=== PATIENT | male | born 1970 | race Caucasian/White ===

== ENCOUNTER 2024-11-27 22:00 | Inpatient (IN) | payer MEDICAID ==
[~2024-11-27] VITALS: Ht 185.4 cm; Wt 64.0 kg
[2024-11-27] MEDS: FUROSEMIDE 40 MG/4 ML VIAL IV ONE (22:15)
[2024-11-27] MEDS: NITROGLYCERIN OINT 1 GM PACKET TP ONE (22:15)
[2024-11-27] MEDS: ASPIRIN 81 MG TAB.CHEW PO ONE (22:15)
[2024-11-27] MEDS ORDERED: APIX5TAB PO (22:27)
[2024-11-27] MEDS ORDERED: SACU1TAB7 PO (22:27)
[2024-11-27] MEDS ORDERED: PANT40TA49 PO (22:27)
[2024-11-27] MEDS ORDERED: QUET25TA PO (22:27)
[2024-11-27] MEDS ORDERED: TAMS-3 PO (22:27)
[2024-11-27] MEDS ORDERED: MIDO10TA PO (22:27)
[2024-11-27] MEDS ORDERED: AMIO200T5 PO (22:27)
[2024-11-27] MEDS ORDERED: BUME1TAB8 PO (22:27)
[2024-11-27] MEDS ORDERED: MIRT-73 PO (22:27)
[2024-11-27 22:37] LABS: BASOPHILS # (AUTO) 0.1 K/UL (0.0-0.2); BASOPHILS % (AUTO) 0.5 % (0.0-2.0); EOSINOPHILS % (AUTO) 0.2 % (0.0-7.0); HEMATOCRIT 35.9 % (36.7-47.1); HEMOGLOBIN 11.3 g/dL (12.5-16.3); LYMPHOCYTES # (AUTO) 2.9 K/uL (0.8-4.8); LYMPHOCYTES % (AUTO) 22.3 % (20.5-51.5); MEAN CORPUSCULAR HEMOGLOBIN 24.1 uug (23.8-33.4); MEAN CORPUSCULAR HGB CONC 32 g/dL (32.5-36.3); MEAN CORPUSCULAR VOLUME 76.4 fL (73.0-96.2); MONOCYTES # (AUTO) 0.7 K/uL (0.1-1.30); MONOCYTES % (AUTO) 5.7 % (0.0-11.0); NEUTROPHILS # (AUTO) 9.3 K/uL (1.8-8.9); NEUTROPHILS % (AUTO) 71.3 % (38.5-71.5); PLATELET COUNT (AUTO) 229 K/uL (152-348); RED CELL DISTRIBUTION WIDTH 30.9 % (12.1-16.2)
[2024-11-27] MEDS: levoFLOXacin 750 MG/D5W 150 ML PIGGYBACK IV ONE (22:45)
[2024-11-27] MEDS ORDERED: LABETALOL HCL 100 MG/20 ML VIAL ONE (22:48)
[2024-11-27 22:56] LABS: DIFFERENTIAL COMMENT 1
[2024-11-27 23:01] LABS: CALCIUM 8.2 mg/dL (8.5-10.1); CARBON DIOXIDE 18 mmol/L (21-32); CHLORIDE 110 mmol/L (98-107); CREATININE 1.1 mg/dL (0.6-1.3); GLUCOSE 144 mg/dL (74-106); POTASSIUM 4.1 mmol/L (3.5-5.1); SODIUM SERUM 139 mmol/L (136-145); UREA NITROGEN, BLOOD 25 mg/dL (7-18)
[2024-11-27 23:10] LABS: ABG BASE EXCESS -7.2 mmol/L (-2.0-3.0); ABG HCO3 16.9 mmol/L (21.0-28.0); ABG PCO2 30.1 mmHg (35.0-48.0); ABG PH 7.368 (7.350-7.450); ABG PO2 95.6 mmHg (83.0-108.0); ABG SITE LEFT RADIAL; ABG TOTAL HEMOGLOBIN 11.9 G/dL (13.5-17.5); AaDO2 97.2 mmHg; COHb 0.7 % (0.5-1.5); MetHb 0.3 % (0.0-1.5); O2Hb 94.9 % (94.0-98.0)
[2024-11-27 23:17] LABS: ALANINE AMINOTRANSFERASE 12 U/L (16-63); ALBUMIN 2.5 g/dL (3.4-5.0); ALKALINE PHOSPHATASE 89 U/L (50-136); ASPARTATE AMINOTRANSFERASE 17 U/L (15-37); BILIRUBIN,DIRECT 0.3 mg/dL (0.0-0.2); BILIRUBIN,TOTAL 0.6 mg/dL (0.2-1.0); TOTAL PROTEIN, SERUM 6.1 g/dL (6.4-8.2)
[2024-11-27] MEDS ORDERED: IV NORMAL SALINE 250 ML IV ONE (23:28)
[2024-11-27] MEDS ORDERED: IOHEXOL 350 100 ML INFUS..BTL ONE (23:28)
[2024-11-27] MEDS ORDERED: SWABABLE VALVE TRANSFER SET EA MC ONE (23:28)
[2024-11-27 23:37] LABS: NT-PRO BNP 37984 pg/mL (0-125)
[2024-11-27] MEDS ORDERED: levoFLOXacin 750MG/D5W 150 ML IV ONE (23:54)
[2024-11-27] MEDS ORDERED: BUMETANIDE 1 MG/4 ML VIAL ONE (23:54)
[2024-11-27] MEDS ORDERED: ASPIRIN 81 MG TAB.CHEW ONE (23:54)
[2024-11-27] MEDS ORDERED: FUROSEMIDE 40 MG/4 ML VIAL ONE (23:54)
[2024-11-27] MEDS ORDERED: NITROGLYCERIN OINT 1 GM PACKET TP ONE (23:54)
[2024-11-27] MEDS ORDERED: POTASSIUM CHLORIDE 20 MEQ TAB.PRT.SR ONE (23:55)
[2024-11-28] VITALS (57 sets, daily range): BP systolic 82–111; BP diastolic 66–86; TEMP 97.2–97.7; O2SAT 98–100
[2024-11-28] MEDS: POTASSIUM CHLORIDE 20 MEQ TAB.PRT.SR PO ONE (00:35)
[2024-11-28] MEDS: BUMETANIDE 1 MG/4 ML VIAL IV ONE (00:35)
[2024-11-28] MEDS: ETOMIDATE 20 MG/10 ML VIAL IV ONE (00:36)
[2024-11-28] MEDS: SUCCINYLCHOLINE CHLORIDE 200 MG/10 ML VIAL IV ONE (00:36)
[2024-11-28] MEDS ORDERED: PROPOFOL 100 ML ONE ×2 (00:40→06:29)
[2024-11-28] MEDS ORDERED: NOREPINEPHRINE 8MG/NS 250ML 250 ML IV PRN (00:45)
[2024-11-28] MEDS ORDERED: REMEDY ESSENTIAL ZINC PASTE 113 GM TP PRN (00:45)
[2024-11-28] MEDS ORDERED: ONDANSETRON 4 MG/2 ML VIAL IV PRN (00:45)
[2024-11-28] MEDS ORDERED: ACETAMINOPHEN 650 MG SUPP.RECT RC PRN (00:45)
[2024-11-28 01:07] LABS: ABG BASE EXCESS -11.5 mmol/L (-2.0-3.0); ABG HCO3 14.7 mmol/L (21.0-28.0); ABG PCO2 34.6 mmHg (35.0-48.0); ABG PH 7.247 (7.350-7.450); ABG PO2 208.8 mmHg (83.0-108.0); ABG SITE LEFT RADIAL; AaDO2 99.3 mmHg; COHb 0.3 % (0.5-1.5); MetHb 0.3 % (0.0-1.5); O2Hb 97.6 % (94.0-98.0); VT, ABG 500 mL
[2024-11-28] MEDS: PROPOFOL 100 ML IV ONE (01:12)
[2024-11-28 01:14] LABS: LACTIC ACID 3.2 mmol/L (0.4-2.0)
[2024-11-28] MEDS: IV NORMAL SALINE 500 ML BAG IV ONE (01:36)
[2024-11-28] MEDS ORDERED: ENOXAPARIN SODIUM 60 MG/0.6 ML DISP.SYRIN SQ ONE ×2 (02:19→14:00)
[2024-11-28] MEDS: ENOXAPARIN SODIUM 60 MG/0.6 ML DISP.SYRIN SQ ONE (02:20)
[2024-11-28 02:50] LABS: *CLARITY,URINE SLIGHTLY HAZY (CLEAR); *COLOR,URINE YELLOW (YELLOW)
[2024-11-28 02:51] LABS: *BILIRUBIN,URIN 1+ (NEGATIVE); *BLOOD, URINE 1+ (NEGATIVE); *PROTEIN,URINE 1+ (NEGATIVE); UGLUCOSE NEGATIVE (NEGATIVE)
[2024-11-28 02:52] LABS: *KETONES,URINE TRACE (NEGATIVE); *UROBILINOGEN,URINE 0.2 E.U./dl (NORMAL); LEUKOCYTE ESTERASE ,URINE NEGATIVE (NEGATIVE); NITRITE, URINE NEGATIVE (NEGATIVE)
[2024-11-28 02:59] LABS: WBC,URINE 0-3 /HPF (0-3)
[2024-11-28 03:06] LABS: BACTERIA,URINE FEW /HPF (NONE SEEN); SQUAMOUS EPITHELIAL CELL,UR MODERATE /HPF (NONE SEEN)
[2024-11-28 06:25] LABS: BASOPHILS % (AUTO) 0.2 % (0.0-2.0); EOSINOPHILS % (AUTO) 0.1 % (0.0-7.0); HEMATOCRIT 33.6 % (36.7-47.1); HEMOGLOBIN 10.8 g/dL (12.5-16.3); LYMPHOCYTES % (AUTO) 6.5 % (20.5-51.5); MEAN CORPUSCULAR HEMOGLOBIN 24.4 uug (23.8-33.4); MEAN CORPUSCULAR HGB CONC 32 g/dL (32.5-36.3); MEAN CORPUSCULAR VOLUME 76.2 fL (73.0-96.2); MONOCYTES # (AUTO) 0.8 K/uL (0.1-1.30); MONOCYTES % (AUTO) 5.7 % (0.0-11.0); NEUTROPHILS # (AUTO) 12.9 K/uL (1.8-8.9); NEUTROPHILS % (AUTO) 87.5 % (38.5-71.5); PLATELET COUNT (AUTO) 213 K/uL (152-348); RED BLOOD CELL COUNT(AUTO) 4.41 MIL/uL (4.06-5.63); RED CELL DISTRIBUTION WIDTH 30.5 % (12.1-16.2); WHITE BLOOD COUNT (AUTO) 14.8 K/uL (3.6-10.2)
[2024-11-28 06:28] LABS: DIFFERENTIAL COMMENT 1
[2024-11-28 06:44] LABS: CALCIUM 7.9 mg/dL (8.5-10.1); CREATININE 1.1 mg/dL (0.6-1.3); MAGNESIUM 1.8 mg/dL (1.8-2.4); PHOSPHOROUS 4.6 mg/dL (2.5-4.9); POTASSIUM 4.5 mmol/L (3.5-5.1)
[2024-11-28] MEDS ORDERED: PANTOPRAZOLE SODIUM 40 MG VIAL ONE (09:07)
[2024-11-28] MEDS ORDERED: FUROSEMIDE 20 MG/2 ML VIAL ONE (09:07)
[2024-11-28] MEDS: PANTOPRAZOLE SODIUM 40 MG VIAL IV SCH (09:11)
[2024-11-28] MEDS: FUROSEMIDE 20 MG/2 ML VIAL IV SCH (09:11)
[2024-11-28] MEDS: NOREPINEPHRINE BITARTRATE 32 MG in IV NORMAL SALINE 218 ML IV PRN (11:18)
[2024-11-28] MEDS: PROPOFOL 100 ML IV PRN (11:55)
[2024-11-28] MEDS: ENOXAPARIN SODIUM 60 MG/0.6 ML DISP.SYRIN SQ SCH (14:06)
[2024-11-28] MEDS ORDERED: NALO4SPR (14:17)
[2024-11-28] MEDS ORDERED: MULT-594 PO (14:20)
[2024-11-28] MEDS ORDERED: ZINC220T3 PO (14:20)
[2024-11-28] MEDS ORDERED: ACET-73 PO (14:21)
[2024-11-28] MEDS ORDERED: CHOL2000 PO (14:22)
[2024-11-28] MEDS ORDERED: ASCO-375 PO (14:22)
[2024-11-28] MEDS ORDERED: GUAI100S69 PO (14:23)
[2024-11-28] MEDS ORDERED: MELA5TAB PO (14:24)
[2024-11-28 17:03] LABS: ABG BASE EXCESS -2.1 mmol/L (-2.0-3.0); ABG HCO3 21.9 mmol/L (21.0-28.0); ABG PCO2 34.6 mmHg (35.0-48.0); ABG PH 7.419 (7.350-7.450); ABG SITE LEFT RADIAL; ABG TOTAL HEMOGLOBIN 10.7 G/dL (13.5-17.5); AaDO2 97.1 mmHg; COHb 0.5 % (0.5-1.5); MetHb 0.3 % (0.0-1.5); O2Hb 95.1 % (94.0-98.0); VT, ABG 500 mL
[2024-11-28] MEDS: MEROPENEM 1 G in IV NORMAL SALINE 100 ML IV SCH (21:56)
[2024-11-28] MEDS ORDERED: levoFLOXacin 750MG/D5W 750 MG in PREMIXED 1 EACH IV SCH (23:00)
[2024-11-29] VITALS (96 sets, daily range): BP systolic 85–138; BP diastolic 50–97; TEMP 97.8–98.1; O2SAT 99–100
[2024-11-29 05:32] LABS: BASOPHILS # (AUTO) 0.1 K/UL (0.0-0.2); BASOPHILS % (AUTO) 1.7 % (0.0-2.0); EOSINOPHILS % (AUTO) 0.3 % (0.0-7.0); HEMATOCRIT 31.5 % (36.7-47.1); HEMOGLOBIN 10.4 g/dL (12.5-16.3); LYMPHOCYTES # (AUTO) 1.8 K/uL (0.8-4.8); MEAN CORPUSCULAR HGB CONC 33 g/dL (32.5-36.3); MEAN CORPUSCULAR VOLUME 75.7 fL (73.0-96.2); MONOCYTES # (AUTO) 0.7 K/uL (0.1-1.30); MONOCYTES % (AUTO) 8.5 % (0.0-11.0); NEUTROPHILS # (AUTO) 5.9 K/uL (1.8-8.9); NEUTROPHILS % (AUTO) 68.5 % (38.5-71.5); PLATELET COUNT (AUTO) 198 K/uL (152-348); RED BLOOD CELL COUNT(AUTO) 4.16 MIL/uL (4.06-5.63); RED CELL DISTRIBUTION WIDTH 30.7 % (12.1-16.2); WHITE BLOOD COUNT (AUTO) 8.7 K/uL (3.6-10.2)
[2024-11-29 05:35] LABS: DIFFERENTIAL COMMENT 1
[2024-11-29 05:59] LABS: THYROID STIMULATING HORMONE 4.06 mIU/mL (0.358-3.740)
[2024-11-29 06:02] LABS: ABG BASE EXCESS -0.1 mmol/L (-2.0-3.0); ABG HCO3 22.7 mmol/L (21.0-28.0); ABG PCO2 30.7 mmHg (35.0-48.0); ABG PH 7.487 (7.350-7.450); ABG PO2 167.2 mmHg (83.0-108.0); ABG SITE RIGHT RADIAL; ABG TOTAL HEMOGLOBIN 10.5 G/dL (13.5-17.5); AaDO2 99.3 mmHg; COHb 0.4 % (0.5-1.5); MetHb 0.3 % (0.0-1.5); O2Hb 97.6 % (94.0-98.0); VT, ABG 500 mL
[2024-11-29 06:32] LABS: ALBUMIN 2.1 g/dL (3.4-5.0); BILIRUBIN,TOTAL 0.6 mg/dL (0.2-1.0); CALCIUM 7.9 mg/dL (8.5-10.1); CREATININE 1.2 mg/dL (0.6-1.3); MAGNESIUM 1.8 mg/dL (1.8-2.4); PHOSPHOROUS 3.7 mg/dL (2.5-4.9); TOTAL PROTEIN, SERUM 5.1 g/dL (6.4-8.2)
[2024-11-29] MEDS ORDERED: FUROSEMIDE 20 MG/2 ML VIAL IV SCH (09:00)
[2024-11-29] MEDS: FUROSEMIDE 20 MG/2 ML VIAL IVP ONE (09:00)
[2024-11-29] MEDS: AMIODARONE HCL 200 MG TABLET PO SCH (09:01)
[2024-11-29] MEDS: FENTANYL CITRATE/PF 1,000 MCG in IV NORMAL SALINE 80 ML IV PRN (15:27)
[2024-11-29] MEDS: MAGNESIUM SULFATE/D5W 100 ML IV SCH (19:28)
[2024-11-29 19:38] LABS: CREATININE 1.2 mg/dL (0.6-1.3); POTASSIUM 3.5 mmol/L (3.5-5.1)
[2024-11-29] MEDS: FUROSEMIDE 40 MG/4 ML VIAL IVP SCH (20:22)
[2024-11-30] VITALS (98 sets, daily range): BP systolic 13–122; BP diastolic 48–87; TEMP 97.4–99; O2SAT 97–100
[2024-11-30 05:53] LABS: ABG BASE EXCESS 0.1 mmol/L (-2.0-3.0); ABG HCO3 21.8 mmol/L (21.0-28.0); ABG PCO2 26.7 mmHg (35.0-48.0); ABG PH 7.529 (7.350-7.450); ABG PO2 132.1 mmHg (83.0-108.0); ABG SITE RIGHT RADIAL; COHb 0.5 % (0.5-1.5); MetHb 0.3 % (0.0-1.5); O2Hb 96.8 % (94.0-98.0); VT, ABG 500 mL
[2024-11-30] MEDS: FUROSEMIDE 20 MG/2 ML VIAL IVP SCH (08:07)
[2024-11-30 08:10] LABS: BASOPHILS # (AUTO) 0.2 K/UL (0.0-0.2); BASOPHILS % (AUTO) 1.9 % (0.0-2.0); EOSINOPHILS # (AUTO) 0.1 K/uL (0.0-0.7); EOSINOPHILS % (AUTO) 0.7 % (0.0-7.0); HEMATOCRIT 37.6 % (36.7-47.1); HEMOGLOBIN 12.3 g/dL (12.5-16.3); LYMPHOCYTES # (AUTO) 2.3 K/uL (0.8-4.8); LYMPHOCYTES % (AUTO) 26.3 % (20.5-51.5); MEAN CORPUSCULAR HEMOGLOBIN 24.6 uug (23.8-33.4); MEAN CORPUSCULAR HGB CONC 33 g/dL (32.5-36.3); MONOCYTES # (AUTO) 0.8 K/uL (0.1-1.30); MONOCYTES % (AUTO) 9.2 % (0.0-11.0); NEUTROPHILS # (AUTO) 5.3 K/uL (1.8-8.9); NEUTROPHILS % (AUTO) 61.9 % (38.5-71.5); PLATELET COUNT (AUTO) 216 K/uL (152-348); RED BLOOD CELL COUNT(AUTO) 5.01 MIL/uL (4.06-5.63); RED CELL DISTRIBUTION WIDTH 30.9 % (12.1-16.2); WHITE BLOOD COUNT (AUTO) 8.6 K/uL (3.6-10.2)
[2024-11-30 08:19] LABS: DIFFERENTIAL COMMENT 1
[2024-11-30 08:34] LABS: ALBUMIN 2.2 g/dL (3.4-5.0); BILIRUBIN,TOTAL 0.6 mg/dL (0.2-1.0); CALCIUM 8.1 mg/dL (8.5-10.1); CREATININE 1.1 mg/dL (0.6-1.3); POTASSIUM 3.4 mmol/L (3.5-5.1); TOTAL PROTEIN, SERUM 5.9 g/dL (6.4-8.2)
[2024-11-30] MEDS: PROPOFOL 100 ML IV PRN (08:46)
[2024-11-30] MEDS ORDERED: FUROSEMIDE 40 MG/4 ML VIAL IVP SCH (09:00)
[2024-11-30] MEDS: NOREPINEPHRINE 8MG/NS 250ML 250 ML IV PRN (19:00)
[2024-11-30] MEDS: POTASSIUM CHLORIDE 50 ML IV ONE (20:10)
[2024-12-01] VITALS (89 sets, daily range): BP systolic 87–125; BP diastolic 65–97; TEMP 97.8–98.8; O2SAT 97–100
[2024-12-01 05:29] LABS: BASOPHILS # (AUTO) 0.1 K/UL (0.0-0.2); BASOPHILS % (AUTO) 1.8 % (0.0-2.0); EOSINOPHILS # (AUTO) 0.1 K/uL (0.0-0.7); EOSINOPHILS % (AUTO) 1.5 % (0.0-7.0); HEMATOCRIT 41.2 % (36.7-47.1); HEMOGLOBIN 13.6 g/dL (12.5-16.3); LYMPHOCYTES # (AUTO) 2.4 K/uL (0.8-4.8); LYMPHOCYTES % (AUTO) 30.1 % (20.5-51.5); MEAN CORPUSCULAR HEMOGLOBIN 24.9 uug (23.8-33.4); MEAN CORPUSCULAR HGB CONC 33 g/dL (32.5-36.3); MEAN CORPUSCULAR VOLUME 75.6 fL (73.0-96.2); MONOCYTES # (AUTO) 0.7 K/uL (0.1-1.30); MONOCYTES % (AUTO) 9.1 % (0.0-11.0); NEUTROPHILS # (AUTO) 4.5 K/uL (1.8-8.9); NEUTROPHILS % (AUTO) 57.5 % (38.5-71.5); PLATELET COUNT (AUTO) 244 K/uL (152-348); RED BLOOD CELL COUNT(AUTO) 5.45 MIL/uL (4.06-5.63); RED CELL DISTRIBUTION WIDTH 30.8 % (12.1-16.2); WHITE BLOOD COUNT (AUTO) 7.9 K/uL (3.6-10.2)
[2024-12-01 05:32] LABS: DIFFERENTIAL COMMENT 1
[2024-12-01 05:43] LABS: CALCIUM 8.2 mg/dL (8.5-10.1); MAGNESIUM 2.2 mg/dL (1.8-2.4); PHOSPHOROUS 4.3 mg/dL (2.5-4.9); POTASSIUM 4.1 mmol/L (3.5-5.1)
[2024-12-01 06:10] LABS: ABG BASE EXCESS -0.7 mmol/L (-2.0-3.0); ABG HCO3 23.1 mmol/L (21.0-28.0); ABG PCO2 35.6 mmHg (35.0-48.0); ABG PO2 98.2 mmHg (83.0-108.0); ABG SITE RIGHT RADIAL; AaDO2 97.7 mmHg; MetHb 0.3 % (0.0-1.5); O2Hb 95.3 % (94.0-98.0)
[2024-12-01] MEDS: BUMETANIDE 1 MG TABLET PO SCH (08:53)
[2024-12-01] MEDS: APIXABAN 5 MG TABLET PO SCH (08:53)
[2024-12-01] MEDS ORDERED: BISACODYL 10 MG SUPP.RECT RC PRN (20:30)
[2024-12-01] MEDS: LACTULOSE 20 G/30 ML LIQUID UDC GT PRN (20:54)
[2024-12-02] VITALS (65 sets, daily range): BP systolic 85–138; BP diastolic 44–99; TEMP 97.9–99; O2SAT 96–100
[2024-12-02 04:39] LABS: BASOPHILS # (AUTO) 0.1 K/UL (0.0-0.2); BASOPHILS % (AUTO) 1.7 % (0.0-2.0); EOSINOPHILS # (AUTO) 0.3 K/uL (0.0-0.7); EOSINOPHILS % (AUTO) 3.9 % (0.0-7.0); HEMATOCRIT 40.8 % (36.7-47.1); HEMOGLOBIN 13.4 g/dL (12.5-16.3); LYMPHOCYTES # (AUTO) 2.9 K/uL (0.8-4.8); LYMPHOCYTES % (AUTO) 34.6 % (20.5-51.5); MEAN CORPUSCULAR HGB CONC 33 g/dL (32.5-36.3); MONOCYTES # (AUTO) 0.9 K/uL (0.1-1.30); MONOCYTES % (AUTO) 10.4 % (0.0-11.0); NEUTROPHILS # (AUTO) 4.2 K/uL (1.8-8.9); NEUTROPHILS % (AUTO) 49.4 % (38.5-71.5); PLATELET COUNT (AUTO) 258 K/uL (152-348); RED BLOOD CELL COUNT(AUTO) 5.37 MIL/uL (4.06-5.63); RED CELL DISTRIBUTION WIDTH 29.9 % (12.1-16.2); WHITE BLOOD COUNT (AUTO) 8.4 K/uL (3.6-10.2)
[2024-12-02 04:40] LABS: DIFFERENTIAL COMMENT 1
[2024-12-02 04:53] LABS: CALCIUM 8.2 mg/dL (8.5-10.1); CREATININE 0.9 mg/dL (0.6-1.3); MAGNESIUM 2.1 mg/dL (1.8-2.4); PHOSPHOROUS 3.7 mg/dL (2.5-4.9); POTASSIUM 3.8 mmol/L (3.5-5.1)
[2024-12-02 06:44] LABS: ABG BASE EXCESS -0.1 mmol/L (-2.0-3.0); ABG HCO3 23.7 mmol/L (21.0-28.0); ABG PCO2 36.2 mmHg (35.0-48.0); ABG PH 7.434 (7.350-7.450); ABG PO2 89.7 mmHg (83.0-108.0); ABG SITE RIGHT BRACHIAL; ABG TOTAL HEMOGLOBIN 13.8 G/dL (13.5-17.5); AaDO2 97.1 mmHg; COHb 0.7 % (0.5-1.5); MetHb 0.3 % (0.0-1.5); O2Hb 94.9 % (94.0-98.0)
[2024-12-02] MEDS: JEVITY 1.2 1000 ML LIQUID NG PRN (16:32)
[2024-12-02] MEDS: FREE WATER VIA TUBE FEEDING GT SCH (18:19)
[2024-12-02] MEDS: APIXABAN 5 MG TABLET PO SCH (20:31)
[2024-12-03] VITALS (64 sets, daily range): BP systolic 76–123; BP diastolic 55–96; TEMP 97.5–98.5; O2SAT 92–100
[2024-12-03 05:29] LABS: BASOPHILS # (AUTO) 0.1 K/UL (0.0-0.2); BASOPHILS % (AUTO) 1.8 % (0.0-2.0); EOSINOPHILS # (AUTO) 0.1 K/uL (0.0-0.7); EOSINOPHILS % (AUTO) 0.7 % (0.0-7.0); HEMATOCRIT 39.7 % (36.7-47.1); LYMPHOCYTES # (AUTO) 2.1 K/uL (0.8-4.8); LYMPHOCYTES % (AUTO) 26.5 % (20.5-51.5); MEAN CORPUSCULAR HEMOGLOBIN 24.7 uug (23.8-33.4); MEAN CORPUSCULAR HGB CONC 33 g/dL (32.5-36.3); MEAN CORPUSCULAR VOLUME 75.4 fL (73.0-96.2); MONOCYTES # (AUTO) 0.6 K/uL (0.1-1.30); MONOCYTES % (AUTO) 7.8 % (0.0-11.0); NEUTROPHILS % (AUTO) 63.2 % (38.5-71.5); PLATELET COUNT (AUTO) 217 K/uL (152-348); RED BLOOD CELL COUNT(AUTO) 5.26 MIL/uL (4.06-5.63); RED CELL DISTRIBUTION WIDTH 30.2 % (12.1-16.2); WHITE BLOOD COUNT (AUTO) 7.9 K/uL (3.6-10.2)
[2024-12-03 05:30] LABS: DIFFERENTIAL COMMENT 1
[2024-12-03 05:41] LABS: CALCIUM 7.9 mg/dL (8.5-10.1); POTASSIUM 3.6 mmol/L (3.5-5.1)
[2024-12-03 05:42] LABS: PHOSPHOROUS 3.5 mg/dL (2.5-4.9)
[2024-12-03 07:36] LABS: ABG BASE EXCESS -1.2 mmol/L (-2.0-3.0); ABG HCO3 22.4 mmol/L (21.0-28.0); ABG PCO2 34.2 mmHg (35.0-48.0); ABG PH 7.434 (7.350-7.450); ABG PO2 83.3 mmHg (83.0-108.0); ABG SITE LEFT RADIAL; ABG TOTAL HEMOGLOBIN 14.2 G/dL (13.5-17.5); AaDO2 96.6 mmHg; COHb 1.1 % (0.5-1.5); MetHb 0.3 % (0.0-1.5); O2Hb 94.2 % (94.0-98.0)
[2024-12-03] MEDS: IPRATROPIUM BROMIDE 0.5 MG/2.5 ML NEBU NEB PRN (09:17)
[2024-12-03] MEDS: ACETYLCYSTEINE 20% 800 MG/4 ML VIAL NEB SCH (09:17)
[2024-12-03] MEDS: ALBUTEROL SULFATE 2.5 MG/3 ML NEBU NEB PRN (09:17)
[2024-12-03] MEDS: ALBUTEROL SULFATE 2.5 MG/3 ML NEBU NEB SCH (15:18)
[2024-12-04] VITALS (54 sets, daily range): BP systolic 89–130; BP diastolic 60–97; TEMP 97.7–98.6; O2SAT 96–100
[2024-12-04 05:41] LABS: BASOPHILS # (AUTO) 0.1 K/UL (0.0-0.2); DIFFERENTIAL COMMENT 1; EOSINOPHILS # (AUTO) 0.1 K/uL (0.0-0.7); EOSINOPHILS % (AUTO) 0.8 % (0.0-7.0); HEMATOCRIT 40.8 % (36.7-47.1); HEMOGLOBIN 13.4 g/dL (12.5-16.3); LYMPHOCYTES # (AUTO) 1.5 K/uL (0.8-4.8); MEAN CORPUSCULAR HEMOGLOBIN 24.9 uug (23.8-33.4); MEAN CORPUSCULAR HGB CONC 33 g/dL (32.5-36.3); MEAN CORPUSCULAR VOLUME 75.9 fL (73.0-96.2); MONOCYTES # (AUTO) 0.6 K/uL (0.1-1.30); MONOCYTES % (AUTO) 7.3 % (0.0-11.0); NEUTROPHILS # (AUTO) 5.6 K/uL (1.8-8.9); NEUTROPHILS % (AUTO) 71.9 % (38.5-71.5); PLATELET COUNT (AUTO) 235 K/uL (152-348); RED BLOOD CELL COUNT(AUTO) 5.37 MIL/uL (4.06-5.63); RED CELL DISTRIBUTION WIDTH 30.3 % (12.1-16.2); WHITE BLOOD COUNT (AUTO) 7.8 K/uL (3.6-10.2)
[2024-12-04 05:50] LABS: CALCIUM 8.2 mg/dL (8.5-10.1); CREATININE 0.8 mg/dL (0.6-1.3); MAGNESIUM 2.2 mg/dL (1.8-2.4); PHOSPHOROUS 3.5 mg/dL (2.5-4.9); POTASSIUM 3.6 mmol/L (3.5-5.1)
[2024-12-04 07:22] LABS: ABG BASE EXCESS 2.3 mmol/L (-2.0-3.0); ABG HCO3 26.6 mmol/L (21.0-28.0); ABG PCO2 40.2 mmHg (35.0-48.0); ABG PH 7.439 (7.350-7.450); ABG PO2 68.1 mmHg (83.0-108.0); ABG SITE RIGHT RADIAL; AaDO2 94.2 mmHg; COHb 1.1 % (0.5-1.5); MetHb 0.3 % (0.0-1.5); O2Hb 91.9 % (94.0-98.0); VT, ABG 0 mL
[2024-12-04] MEDS ORDERED: DC PROPOFOL ONCE EXTUBATED XX PRN (08:00)
[2024-12-04] MEDS: BUMETANIDE 1 MG TABLET PO ONE (12:36)
[2024-12-04] MEDS: POTASSIUM CHLORIDE 20 MEQ POWDER PACKET GT ONE (12:36)
[2024-12-04] MEDS: OLANZAPINE 10 MG VIAL IM ONE (18:54)
[2024-12-05] VITALS (22 sets, daily range): BP systolic 96–111; BP diastolic 64–80; TEMP 97.1–98.7; O2SAT 92–100
[2024-12-05 04:57] LABS: BASOPHILS # (AUTO) 0.1 K/UL (0.0-0.2); BASOPHILS % (AUTO) 1.5 % (0.0-2.0); EOSINOPHILS # (AUTO) 0.1 K/uL (0.0-0.7); EOSINOPHILS % (AUTO) 1.1 % (0.0-7.0); HEMATOCRIT 42.4 % (36.7-47.1); HEMOGLOBIN 13.6 g/dL (12.5-16.3); LYMPHOCYTES # (AUTO) 1.9 K/uL (0.8-4.8); LYMPHOCYTES % (AUTO) 26.3 % (20.5-51.5); MEAN CORPUSCULAR HEMOGLOBIN 24.8 uug (23.8-33.4); MEAN CORPUSCULAR HGB CONC 32 g/dL (32.5-36.3); MEAN CORPUSCULAR VOLUME 77.2 fL (73.0-96.2); MONOCYTES # (AUTO) 0.6 K/uL (0.1-1.30); MONOCYTES % (AUTO) 7.6 % (0.0-11.0); NEUTROPHILS # (AUTO) 4.7 K/uL (1.8-8.9); NEUTROPHILS % (AUTO) 63.5 % (38.5-71.5); PLATELET COUNT (AUTO) 214 K/uL (152-348); RED BLOOD CELL COUNT(AUTO) 5.49 MIL/uL (4.06-5.63); RED CELL DISTRIBUTION WIDTH 29.6 % (12.1-16.2); WHITE BLOOD COUNT (AUTO) 7.4 K/uL (3.6-10.2)
[2024-12-05 04:58] LABS: DIFFERENTIAL COMMENT 1
[2024-12-05 05:08] LABS: CALCIUM 8.6 mg/dL (8.5-10.1); CREATININE 0.8 mg/dL (0.6-1.3); MAGNESIUM 2.1 mg/dL (1.8-2.4)
[2024-12-05 06:25] LABS: ABG BASE EXCESS 6.6 mmol/L (-2.0-3.0); ABG HCO3 29.8 mmol/L (21.0-28.0); ABG PCO2 37.9 mmHg (35.0-48.0); ABG PH 7.514 (7.350-7.450); ABG PO2 84.4 mmHg (83.0-108.0); ABG SITE LEFT RADIAL; ABG TOTAL HEMOGLOBIN 13.9 G/dL (13.5-17.5); AaDO2 97.2 mmHg; COHb 1.2 % (0.5-1.5); MetHb 0.3 % (0.0-1.5); O2Hb 94.9 % (94.0-98.0)
[2024-12-05] MEDS: BUMETANIDE 1 MG/4 ML VIAL IV SCH (08:06)
[2024-12-05] MEDS ORDERED: BUMETANIDE 1 MG TABLET PO SCH (09:00)
[2024-12-06] VITALS (8 sets, daily range): BP systolic 100–101; BP diastolic 68–70; TEMP 97.3–98.5; O2SAT 96–100
[2024-12-06] MEDS: BUMETANIDE 1 MG TABLET PO SCH (08:19)
[2024-12-06] MEDS: MEDIHONEY= THERAHONEY 1.5 OZ TUBE TOP SCH (11:38)
[2024-12-07] VITALS (13 sets, daily range): BP systolic 93–128; BP diastolic 58–75; TEMP 97.8–98.3; O2SAT 97–100
[2024-12-07] MEDS: PANTOPRAZOLE ORAL SUSPENSION 40 MG SUSPDR.PKT PO SCH (06:15)
[2024-12-07 07:06] LABS: ALBUMIN 2.4 g/dL (3.4-5.0); CALCIUM 8.7 mg/dL (8.5-10.1); CREATININE 0.7 mg/dL (0.6-1.3); MAGNESIUM 2.1 mg/dL (1.8-2.4); PHOSPHOROUS 3.5 mg/dL (2.5-4.9); POTASSIUM 3.3 mmol/L (3.5-5.1); TOTAL PROTEIN, SERUM 6.2 g/dL (6.4-8.2)
[2024-12-07 07:14] LABS: BASOPHILS # (AUTO) 0.1 K/UL (0.0-0.2); BASOPHILS % (AUTO) 0.9 % (0.0-2.0); DIFFERENTIAL COMMENT 0; EOSINOPHILS # (AUTO) 0.1 K/uL (0.0-0.7); EOSINOPHILS % (AUTO) 1.1 % (0.0-7.0); HEMATOCRIT 39.2 % (36.7-47.1); HEMOGLOBIN 12.9 g/dL (12.5-16.3); LYMPHOCYTES # (AUTO) 2.3 K/uL (0.8-4.8); LYMPHOCYTES % (AUTO) 28.9 % (20.5-51.5); MEAN CORPUSCULAR HEMOGLOBIN 25.5 uug (23.8-33.4); MEAN CORPUSCULAR HGB CONC 33 g/dL (32.5-36.3); MEAN CORPUSCULAR VOLUME 77.8 fL (73.0-96.2); MONOCYTES # (AUTO) 0.6 K/uL (0.1-1.30); MONOCYTES % (AUTO) 7.1 % (0.0-11.0); NEUTROPHILS # (AUTO) 4.9 K/uL (1.8-8.9); PLATELET COUNT (AUTO) 226 K/uL (152-348); RED BLOOD CELL COUNT(AUTO) 5.04 MIL/uL (4.06-5.63); RED CELL DISTRIBUTION WIDTH 28.7 % (12.1-16.2); WHITE BLOOD COUNT (AUTO) 7.9 K/uL (3.6-10.2)
[2024-12-07] MEDS: POTASSIUM CHLORIDE 20 MEQ POWDER PACKET PO ONE (08:23)
[2024-12-07] MEDS: METOPROLOL SUCCINATE XL 50 MG TAB.SR.24H PO SCH (08:24)
[2024-12-07] MEDS: VALSARTAN 40 MG TABLET PO SCH (08:24)
[2024-12-07] MEDS: POTASSIUM CHLORIDE 50 ML IV SCH (08:25)
[2024-12-07] MEDS: SPIRONOLACTONE 25 MG TABLET PO SCH (09:29)
[2024-12-08] VITALS (9 sets, daily range): BP systolic 91–126; BP diastolic 62–74; TEMP 97.5–98.4; O2SAT 93–100
[2024-12-08 06:53] LABS: BASOPHILS # (AUTO) 0.1 K/UL (0.0-0.2); BASOPHILS % (AUTO) 1.1 % (0.0-2.0); EOSINOPHILS # (AUTO) 0.1 K/uL (0.0-0.7); EOSINOPHILS % (AUTO) 1.3 % (0.0-7.0); HEMATOCRIT 45.4 % (36.7-47.1); HEMOGLOBIN 14.7 g/dL (12.5-16.3); LYMPHOCYTES # (AUTO) 2.6 K/uL (0.8-4.8); LYMPHOCYTES % (AUTO) 30.8 % (20.5-51.5); MEAN CORPUSCULAR HEMOGLOBIN 25.3 uug (23.8-33.4); MEAN CORPUSCULAR HGB CONC 33 g/dL (32.5-36.3); MEAN CORPUSCULAR VOLUME 77.8 fL (73.0-96.2); MONOCYTES # (AUTO) 0.7 K/uL (0.1-1.30); MONOCYTES % (AUTO) 7.7 % (0.0-11.0); NEUTROPHILS % (AUTO) 59.1 % (38.5-71.5); PLATELET COUNT (AUTO) 280 K/uL (152-348); RED BLOOD CELL COUNT(AUTO) 5.83 MIL/uL (4.06-5.63); WHITE BLOOD COUNT (AUTO) 8.5 K/uL (3.6-10.2)
[2024-12-08 07:09] LABS: DIFFERENTIAL COMMENT 1
[2024-12-08 07:14] LABS: CALCIUM 8.5 mg/dL (8.5-10.1); CREATININE 0.8 mg/dL (0.6-1.3); MAGNESIUM 2.1 mg/dL (1.8-2.4); PHOSPHOROUS 3.8 mg/dL (2.5-4.9); POTASSIUM 3.5 mmol/L (3.5-5.1)
[2024-12-08] MEDS ORDERED: POTASSIUM CHLORIDE 20 MEQ TAB.PRT.SR PO ONE (08:15)
[2024-12-08] MEDS: POTASSIUM CHLORIDE 20 MEQ POWDER PACKET PO ONE (08:57)
[2024-12-08] MEDS: TAMSULOSIN HCL 0.4 MG CAP.SR.24H PO ONE (11:19)
[2024-12-08] MEDS ORDERED: BUME1TAB8 PO (16:08)
[2024-12-08] MEDS ORDERED: METO-357 PO (16:08)
[2024-12-08] MEDS ORDERED: AMIO200T6 PO (16:08)
[2024-12-08] MEDS ORDERED: SPIR25TA PO (16:08)
[2024-12-08] MEDS ORDERED: SACU1TAB PO (16:08)
[2024-12-08] MEDS ORDERED: APIX5TAB PO (16:08)
[2024-12-08] MEDS ORDERED: DAPA10TA PO (16:08)
[2024-12-08] MEDS ORDERED: TAMS-3 PO (16:08)
[2024-12-09 05:10] VITALS: BP 105/71; TEMP 97.6; O2SAT 99
[2024-12-09 08:03] VITALS: BP 96/53; TEMP 97.6; O2SAT 99
[2024-12-09 11:56] VITALS: BP 103/75; TEMP 97.8; O2SAT 93
== END 2024-12-09 14:00 | disposition home or self-care (01) | DRG 720 ==
LOC: ER 22:10 → CCU 11-28 09:00 → TELE3 12-05 22:13 → MEDSURG3 12-09 10:25
PROVIDERS: ADMIT Nurse Practitioner Family; ATTEND Nurse Practitioner Family
PROC: 0BH17EZ Insertion of Endotracheal Airway into Trachea, Via Natural or Artificial Opening (ICD-10-PCS; principal; 2024-11-28)
PROC: 05HA33Z Insertion of Infusion Device into Left Brachial Vein, Percutaneous Approach (ICD-10-PCS; principal; 2024-11-28)
PROC: 5A1955Z Respiratory Ventilation, Greater than 96 Consecutive Hours (ICD-10-PCS; principal; 2024-11-28)
PROC: 0DH673Z Insertion of Infusion Device into Stomach, Via Natural or Artificial Opening (ICD-10-PCS; principal; 2024-11-28)
DX: A41.9 Sepsis, unspecified organism (principal); J96.01 Acute respiratory failure with hypoxia; J69.0 Pneumonitis due to inhalation of food and vomit; I50.23 Acute on chronic systolic (congestive) heart failure; G93.40 Encephalopathy, unspecified; E87.20 Acidosis, unspecified; D68.59 Other primary thrombophilia; I82.401 Acute embolism and thrombosis of unspecified deep veins of right lower extremity; L89.156 Pressure-induced deep tissue damage of sacral region; E88.09 Other disorders of plasma-protein metabolism, not elsewhere classified; I42.8 Other cardiomyopathies; J15.9 Unspecified bacterial pneumonia; J18.9 Pneumonia, unspecified organism; I11.0 Hypertensive heart disease with heart failure; E03.9 Hypothyroidism, unspecified; E78.5 Hyperlipidemia, unspecified; K21.9 Gastro-esophageal reflux disease without esophagitis; N40.0 Benign prostatic hyperplasia without lower urinary tract symptoms; I48.0 Paroxysmal atrial fibrillation; Z86.718 Personal history of other venous thrombosis and embolism; Z79.01 Long term (current) use of anticoagulants; Z95.828 Presence of other vascular implants and grafts; Z95.810 Presence of automatic (implantable) cardiac defibrillator; Z88.0 Allergy status to penicillin; Z74.09 Other reduced mobility; I34.0 Nonrheumatic mitral (valve) insufficiency; J98.11 Atelectasis; I44.7 Left bundle-branch block, unspecified; I25.10 Atherosclerotic heart disease of native coronary artery without angina pectoris; F41.9 Anxiety disorder, unspecified; D64.9 Anemia, unspecified
CPT/HCPCS: 36415; 36600; 71045; 71275; 76604; 82803; 83605; 83735; 84100; 84443; 84478; 84484; 85025; 85730; 87040; 93005; 93307; 94002; 94003; 94640; 94660; 94760; 99082-TC; A4606; A4663; G0378; J0278; J0330; J1650; J1938; J1956; J2185; J2358; J2470; J3010; J3475; J3480; J3490; J3590; J7040; Q9967